=== PATIENT | male | born 1980 | race Caucasian/White ===

== ENCOUNTER 2022-03-15 06:00 | Outpatient (RCR) | payer MEDICAID, SELFPAY | END 2022-04-14 23:59 | disposition home or self-care (01) | LOC: GPT 06:00 | PROVIDERS: Visit Provider Nurse Practitioner Occupational Health | DX: M47.894 Other spondylosis, thoracic region (principal) | CPT/HCPCS: 97110; 97140; 97163 ==

== ENCOUNTER 2022-04-15 06:00 | Outpatient (RCR) | payer MEDICAID, SELFPAY | END 2022-05-14 23:59 | disposition home or self-care (01) | LOC: GPT 06:00 | PROVIDERS: Visit Provider Nurse Practitioner Occupational Health | DX: M47.894 Other spondylosis, thoracic region (principal) | CPT/HCPCS: 97110; 97535 ==

== ENCOUNTER 2022-06-17 08:04 | Outpatient (CLI) | payer MEDICAID, SELFPAY ==
--- NOTE | 2022-06-17 08:11 | MR_ITS ---
WS: [email or web address] MRI LEFT KNEE NONCONTRAST TECHNIQUE: Axial PD, coronal PD fat sat, coronal PD, sagittal PD, and sagittal PD fat-sat images obta ined. CLINICAL INFORMATION: PAIN IN LEFT KNEE COMPARISON: None. FINDINGS: Distal quadriceps and patella tendons are intact. ACL and PCL are intact. Tiny intrasubstance tear in volving the distal ACL insertion likely chronic. ACL is otherwise normal in appearance. Normal medial and lateral meniscus. No acute appearing meniscal tears. Mild chondromalacia patella. Normal medial and lateral patellar retinaculum. Normal popliteal fossa. Normal medial and lateral collateral ligaments. Normal femoral condyles and tibial plateau. No other suspicious findings. MR/MR knee LT wo con* [id number] IMPRESSION: 1. ACL and PCL are intact. Slight thinning of the distal ACL insertion with a small intrasubstance tear likely chronic. ACL is otherwise normal. 2. No acute appearing meniscal tears. 3. Mild chondromalacia patella. No subchondral edema. 4. Normal medial and lateral collateral ligaments. 5. No other suspicious findings. Outbridge grading: grade I: focal areas of hyperintensity with normal contour
== END 2022-06-17 08:05 | disposition home or self-care (01) ==
LOC: RAD 08:05
PROVIDERS: Visit Provider Nurse Practitioner Occupational Health
DX: M22.42 Chondromalacia patellae, left knee (principal); M25.562 Pain in left knee
CPT/HCPCS: 73721

== ENCOUNTER → 2022-06-24 10:21 | Outpatient (BNVA) | payer MEDICAID, SELFPAY | PROVIDERS: Visit Provider Physician Assistant | DX: M41.54 Other secondary scoliosis, thoracic region (principal) | CPT/HCPCS: 72072; 72110 ==

== ENCOUNTER → 2022-07-02 09:56 | Outpatient (BNVA) | payer MEDICAID, SELFPAY | PROVIDERS: Referring Provider Dermatology; Visit Provider Specialist | DX: M89.9 Disorder of bone, unspecified (principal); M25.561 Pain in right knee | CPT/HCPCS: 73560; 73565 ==

== ENCOUNTER 2022-08-04 09:15 | Outpatient (CLI) | payer MEDICAID, SELFPAY ==
--- NOTE | 2022-08-04 10:15 | MR_ITS ---
WS: [email or web address] MRI LUMBAR SPINE NONCONTRAST HISTORY: Chronic back pain down both legs. COMPARISON: None available. TECHNIQUE: Sagittal and axial multisequence imaging is submitted. Normal lumbar alignment with no compression fractures or marrow edema. Mild disc desiccation at L5-S1. No fractures or marrow edema. Conus terminates normally at L1-2 disc level. L1-L2: Normal. L2-L3: Normal. L3-L4: Normal. L4-L5: Mild ligamentum flavum hypertrophy and facet arthritis. Very small amount of fluid in the face t joints. No stenosis. L5-S1: Mild annular disc bulging. Minimal facet joint arthritis. Small amount of fluid in the facet j oints. Paravertebral soft tissues are normal. MR/MR lumbar spine wo con* [id number] IMPRESSION: 1. No acute central or foraminal stenosis. 2. Mild facet joint arthritis at L4-5 and L5-S1.
== END 2022-08-04 09:16 | disposition home or self-care (01) ==
LOC: RAD 09:16
PROVIDERS: Visit Provider Physician Assistant
DX: G89.29 Other chronic pain (principal); M47.816 Spondylosis without myelopathy or radiculopathy, lumbar region; M47.817 Spondylosis without myelopathy or radiculopathy, lumbosacral region
CPT/HCPCS: 72148

== ENCOUNTER 2022-08-04 09:15 | Outpatient (CLI) | payer MEDICAID, SELFPAY ==
--- NOTE | 2022-08-04 09:30 | MR_ITS ---
WS: [email or web address] MRI LEFT LOWER EXTREMITY with and without CONTRAST. COMPARISON: Prior radiographs 07/02/2022 Multiplanar, multisequence imaging is performed with and without contrast. MultiHance 18 mL IV. Poorly defined osseous lesion within the proximal tibial diaphysis. On the T1 sequence there is very mild cortical thickening. On the T2 sequences and proton density sequences there is very mild but not diffuse increased signal. There is thickening of the cortex and a small amount of irregularity along the cortical medullary junction. This lesion is very difficult to visualize by MRI. The lesion exten ds over a length of 2.0 cm and transversely by 14 mm. Seen best on the axial proton density sequences is cortical thickening with a small nidus extending into the cortex. There is mild enhancement within the bone lesion. Enhancement is centered near the cortical medullary junction of the proximal diaphysis. There is not a lot of edema and no fracture. No additional bone lesions are identified. MR/MR lower leg LT wo/w con [id number] IMPRESSION: 1. 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 Very minimal enhancement within this lesion with mild cortical thi ckening. Bone lesion measures 2.0 cm in length x 1.4 cm transversely. There is not a lot of reactive soft tissue edema. Does not appear to be extremely aggres sive although there are osseous changes at the cortical medullary junction. Con privacy analyst benign lesion such as osteoid osteoma and osteomyelitis. Low-grade neopla sm is not completely excluded. There is mild enhancement. 2. No additional bone lesions.
== END 2022-08-04 09:16 | disposition home or self-care (01) ==
LOC: RAD 09:16
PROVIDERS: Visit Provider Specialist
DX: M25.562 Pain in left knee (principal); M89.9 Disorder of bone, unspecified
CPT/HCPCS: 73720; A9577

== ENCOUNTER → 2022-11-12 11:33 | Outpatient (BNVA) | payer MEDICAID, SELFPAY | PROVIDERS: Visit Provider Specialist | DX: M25.511 Pain in right shoulder (principal) | CPT/HCPCS: 73030 ==

== ENCOUNTER 2022-11-27 15:21 | Outpatient (CLI) | payer MEDICAID, SELFPAY ==
--- NOTE | 2022-11-27 15:15 | MR_ITS ---
WS: [email or web address] MRI RIGHT SHOULDER NONCONTRAST TECHNIQUE: Sagittal T2, coronal T1, T2 and proton density imaging. Axial gradient PDE imaging. CLINICAL INFORMATION: right shoulder alejandro COMPARISON: None. FINDINGS: Some images degraded by motion artifact. Advanced degenerative arthritis AC joint prominent for patient this age. Downsloping acromion with pr ominent subacromial spurring. Impingement on the distal supraspinatus with narrowing of the subacromi al space.. Undersurface tear involving the distal supraspinatus insertion. Tendinopathy distal supras pinatus and infraspinatus. No tendon retraction. Otherwise normal infraspinatus. Normal teres minor. Normal subscapularis. Biceps tendon appears intac t within the bicipital groove. Glenoid labrum appears grossly intact. Small amount of subacromial sub deltoid fluid. Biceps labral anchor appears intact. Intra-articular biceps tendon appears intact. No other acute findings. MR/MR shoulder RT wo con* [id number] IMPRESSION: 1. Advanced degenerative arthritis AC joint with a small amount of subacromial and subdeltoid fluid. Prominent subacromial spurring with impingement on the d istal supraspinatus. 2. Undersurface insertional tear distal supraspinatus. No tendon retraction. T endinopathy. 3. Tendinopathy distal infraspinatus. Normal teres minor. 4. Normal subscapularis tendon. 5. Normal biceps tendon in the bicipital groove. 6. No other acute findings.
== END 2022-11-27 15:22 | disposition home or self-care (01) ==
LOC: RAD 15:23
PROVIDERS: Visit Provider Specialist
DX: M75.101 Unspecified rotator cuff tear or rupture of right shoulder, not specified as traumatic (principal); M25.811 Other specified joint disorders, right shoulder; M19.011 Primary osteoarthritis, right shoulder; M25.511 Pain in right shoulder
CPT/HCPCS: 73221

== ENCOUNTER → 2022-12-25 10:44 | Outpatient (BNVA) | payer MEDICAID, SELFPAY | PROVIDERS: Visit Provider Internal Medicine Rheumatology | DX: M19.90 Unspecified osteoarthritis, unspecified site (principal); Z79.899 Other long term (current) drug therapy; Z11.59 Encounter for screening for other viral diseases; M45.6 Ankylosing spondylitis lumbar region | CPT/HCPCS: 36415; 73130; 73630; 80076; 82306; 82565; 85025; 85651; 86140; 86200; 86431; 86480; 86704; 86803; 86812; 87340 ==

== ENCOUNTER → 2023-04-13 11:40 | Outpatient (BNVA) | payer MEDICAID, SELFPAY | PROVIDERS: Referring Provider Anesthesiology Pain Medicine; Visit Provider Psychiatry & Neurology Neurology | DX: M54.2 Cervicalgia (principal); G62.9 Polyneuropathy, unspecified; Z79.899 Other long term (current) drug therapy | CPT/HCPCS: 36415; 80076; 82565; 82607; 82746; 83735; 83921; 84439; 84443; 84481; 85025; 86140 ==

== ENCOUNTER 2023-05-13 09:27 | Outpatient (CLI) | payer MEDICAID, SELFPAY ==
[2023-05-13 10:42] LABS: Albumin Level 4.2 g/dL (3.5-5.2); Alkaline Phosphatase 91 U/L (40-130); Globulin 2.7 g/dL (1.3-4.6); Total Bilirubin 0.7 mg/dL (0.15-1.2); Total Protein 6.9 g/dL (6.6-8.7)
[2023-05-13 12:11] LABS: Alanine Aminotransferase 160 U/L (0-41); Aspartate Amino Transferase 59 U/L (0-40)
== END 2023-05-13 09:28 | disposition home or self-care (01) ==
LOC: LAB 09:27
PROVIDERS: Visit Provider Internal Medicine Rheumatology
DX: Z79.899 Other long term (current) drug therapy (principal)
CPT/HCPCS: 36415; 80076

== ENCOUNTER 2023-05-19 09:32 | Outpatient (CLI) | payer MEDICAID, SELFPAY ==
--- NOTE | 2023-05-19 10:15 | MR_ITS ---
WS: [email or web address] MRI CERVICAL SPINE NONCONTRAST TECHNIQUE: Sagittal T1, T2 and STIR imaging. Axial T2, gradient, and fiesta imaging. CLINICAL INFORMATION: M54.2 - Cervicalgia COMPARISON: None. FINDINGS: Straightening of the normal cervical lordosis. Cord signal is normal. No high-grade central canal vijay rowing. C2-C3: Normal. C3-C4: Mild facet arthropathy. Spinal canal and foramen are patent. C4-C5: Mild disc osteophytic ridging. Mild facet arthropathy. Spinal canal is patent. Mild RIGHT fora piyush narrowing. C5-C6: Mild disc osteophytic ridging. Mild facet arthropathy. Mild RIGHT and no significant LEFT fora piyush narrowing. Tiny central protrusion. C6-C7: Minimal disc bulging with slight effacement of the ventral thecal sac. Mild to moderate LEFT a nd mild RIGHT foraminal narrowing. C7-T1: Mild LEFT and no significant RIGHT foraminal narrowing. Spine canal is patent. Visualized brain stem structures: Normal. Prevertebral soft tissues: Normal. IMPRESSION: 1. Straightening of the normal cervical doses. Cord signal is normal. 2. Disc osteophytic ridging with a small LEFT foraminal protrusion C6-7 with mild to moderate LEFT f oraminal narrowing. 3. Mild RIGHT C4-C5 and RIGHT C5-C6 foraminal narrowing with moderate facet arthropathy. 4. Tiny central protrusion C5-C6 with slight contact of the cervical cord. Spinal canal remains ozuna nt.
== END 2023-05-19 09:33 | disposition home or self-care (01) ==
PROVIDERS: Visit Provider Psychiatry & Neurology Neurology
DX: M50.222 Other cervical disc displacement at C5-C6 level (principal); M48.02 Spinal stenosis, cervical region; M25.78 Osteophyte, vertebrae; M47.812 Spondylosis without myelopathy or radiculopathy, cervical region
CPT/HCPCS: 72141

== ENCOUNTER 2023-06-22 09:46 | Outpatient (CLI) | payer MEDICAID, SELFPAY ==
[2023-06-22 12:16] LABS: Alanine Aminotransferase 95 U/L (0-41); Albumin Level 4.5 g/dL (3.5-5.2); Alkaline Phosphatase 88 U/L (40-130); Aspartate Amino Transferase 26 U/L (0-40); Globulin 2.9 g/dL (1.3-4.6); Total Bilirubin 0.8 mg/dL (0.15-1.2); Total Protein 7.4 g/dL (6.6-8.7)
== END 2023-06-22 09:47 | disposition home or self-care (01) ==
LOC: LAB 09:48
PROVIDERS: PCP Internal Medicine Rheumatology; Visit Provider Internal Medicine Rheumatology
DX: R74.8 Abnormal levels of other serum enzymes (principal); Z79.899 Other long term (current) drug therapy; M25.562 Pain in left knee; M17.12 Unilateral primary osteoarthritis, left knee; M89.9 Disorder of bone, unspecified
CPT/HCPCS: 36415; 73560; 73565; 80076

== ENCOUNTER 2023-07-08 11:12 | Outpatient (CLI) | payer MEDICAID, SELFPAY ==
[2023-07-08 12:13] LABS: Basophils # 0.1 10^3/uL (0.0-0.1); Basophils % 0.7 %; Eosinophils # 0.2 10^3/uL (0.0-0.8); Eosinophils % 2.4 %; Hematocrit 46.9 % (37-53); Lymphocytes # 2.3 10^3/uL (0.8-4.8); Lymphocytes % 31.8 %; Mean Corpuscular HGB Conc 34.5 g/dL (30-55); Mean Corpuscular Hemoglobin 30.1 pg (27-33); Mean Corpuscular Volume 87.2 fl (82-101); Mean Platelet Volume 10.5 fL (7.4-10.4); Monocytes # 0.4 10^3/uL (0.2-0.9); Monocytes % 5.4 %; Neutrophils # 4.25 10^3/uL (1.8-7.7); Neutrophils % 59.3 %; Nucleated Red Blood Cells % 0 %; Platelet Count 233 10^3/cmm (157-399); Red Blood Count 5.38 10^6/uL (3.85-5.65); Red Cell Distribution Width 13.2 % (12.1-15.1); White Blood Count 7.17 10^3/uL (3.29-11.43)
[2023-07-08 12:36] LABS: Albumin Level 3.7 g/dL (3.5-5.2); Alkaline Phosphatase 91 U/L (40-130); Globulin 3.4 g/dL (1.3-4.6); Glomerular Filtration Rate 65.5 mL/min (90-130); Total Bilirubin 0.6 mg/dL (0.15-1.2); Total Protein 7.1 g/dL (6.6-8.7)
[2023-07-08 12:44] LABS: Aspartate Amino Transferase 44 U/L (0-40)
[2023-07-08 12:45] LABS: Alanine Aminotransferase 73 U/L (0-41)
== END 2023-07-08 11:13 | disposition home or self-care (01) ==
LOC: LAB 11:13
PROVIDERS: Visit Provider Internal Medicine Rheumatology
DX: M06.041 Rheumatoid arthritis without rheumatoid factor, right hand (principal); M06.042 Rheumatoid arthritis without rheumatoid factor, left hand; Z79.899 Other long term (current) drug therapy; R74.8 Abnormal levels of other serum enzymes
CPT/HCPCS: 80076; 82565; 85025; 86140

== ENCOUNTER → 2023-07-09 09:35 | Outpatient (BNVA) | payer MEDICAID, SELFPAY | PROVIDERS: Visit Provider Orthopaedic Surgery | DX: M47.812 Spondylosis without myelopathy or radiculopathy, cervical region | CPT/HCPCS: 72050 ==

== ENCOUNTER 2023-07-24 09:23 | Outpatient (CLI) | payer MEDICAID, SELFPAY ==
--- NOTE | 2023-07-24 10:30 | USCV_ITS ---
Bulmaro Peoples Age: 43 Gender: M : 1980 Exam Date: 07/24/2023 09:32 Ordering Phys: All Huber MD Technologist: Exam Location: [facility] – [place] Indication: stenosis Risk Factors: Previous Vascular Surgery: Right Brachial BP: / Left Brachial BP: / Right Left Velocity (cm/s) Spectral Plaque Velocity (cm/s) Spectral Plaque Syst/Diast Broadening Syst/Diast Broadening 126.60/37.00 Prox CCA 160.80/ 27.20 112.60/31.40 Mid CCA 124.90/ 27.20 126.60/28.60 Distal CCA 137.70/ 29.80 88.60/ 25.30 Prox ICA 79.13 / 26.60 67.50/ 23.90 Mid ICA 75.00 / 24.60 80.20/ 29.40 Distal ICA 51.00 / 20.10 137.00 ECA 141.20 0.70 ICA/CCA 0.50 Antegrade Vertebral Antegrade 31.20/ 11.20 cm/s 52.20/ 11.10 cm/s Tri Subclavian Tri CONCLUSIONS Right ICA stenosis <50%. Mild atheromatous plaque right carotid bulb/ICA. Left ICA stenosis <50%. Mild atheromatous plaque left carotid bulb/ICA. Intimal thickening in the common carotid arteries and internal carotid arteries bilaterally. Normal antegrade Doppler flow noted in the right vertebral artery. Normal antegrade Doppler flow noted in the left vertebral artery. Bharath Davis MD (Electronically Signed) Final Date: 24 July 2023 17:36 S
--- NOTE | 2023-07-24 11:00 | MR_ITS ---
WS: [email or web address] MRI BRAIN WITH AND WITHOUT CONTRAST HISTORY: M54.2 - Cervicalgia COMPARISON: None available. TECHNIQUE: Multiplanar imaging performed through the brain with MultiHance 20 ml's IV. No acute infarcts are seen. Richardson-white matter differentiation is well preserved. No susceptibility artifacts or prior lacunar infarcts. Ventricles and extra-axial spaces are normal. Clivus and pituitary gland are normal. Visualized posterior fossa and brainstem are also normal. No enhancing masses. There is a very small venous angioma in the posterior LEFT frontal lobe. Dural venous sinuses are normal. Paranasal sinuses: Well aerated with no significant disease. Mastoid air cells: Normal. Calvarium and scalp: Normal. IMPRESSION: 1. No prior infarcts or hemorrhage. 2. No enhancing masses. 3. Very small posterior LEFT frontal venous angioma.
== END 2023-07-24 09:24 | disposition home or self-care (01) ==
LOC: RAD 09:24
PROVIDERS: Visit Provider Psychiatry & Neurology Neurology
DX: M54.2 Cervicalgia (principal); R22.1 Localized swelling, mass and lump, neck; M79.2 Neuralgia and neuritis, unspecified; I65.23 Occlusion and stenosis of bilateral carotid arteries; Q28.3 Other malformations of cerebral vessels
CPT/HCPCS: 70553; 72050; 93880; A9577

== ENCOUNTER 2023-08-03 09:56 | Outpatient (CLI) | payer MEDICAID, SELFPAY ==
--- NOTE | 2023-08-03 11:00 | MR_ITS ---
WS: [email or web address] MRI LEFT LOWER EXTREMITY WITH AND WITHOUT CONTRAST. COMPARISON: 08/04/2022 Multiplanar, multisequence imaging is performed with and without contrast. MultiHance 19 mL. Reidentified is the very minimal cortical thickening involving the proximal tibial metaphysis as seen on the prior examination from 08/04/2022. Cortical thickening extends over a length of 1.8 cm and the re is no significant amount of edema. No fracture. Very similar to the prior study. No additional abn ormality. There is also no enhancement on the postcontrast sequences. IMPRESSION: Mild cortical thickening extending over a length of 1.8 cm along the medial LEFT tibial metaphysis perez s not progressed. There is no marrow edema to suggest this is an acute inflammatory or aggressive pro cess. No fracture. 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
[2023-08-03] MEDS: gadobenate dimeglumine 20 mL vial IV (12:22)
== END 2023-08-03 09:57 | disposition home or self-care (01) ==
LOC: RAD 09:57
PROVIDERS: Visit Provider Specialist
DX: M89.9 Disorder of bone, unspecified (principal)
CPT/HCPCS: 73720; A9577

== ENCOUNTER → 2023-10-07 11:05 | Outpatient (BNVA) | payer MEDICAID, SELFPAY | PROVIDERS: PCP Nurse Practitioner; Visit Provider Internal Medicine Rheumatology | DX: M06.041 Rheumatoid arthritis without rheumatoid factor, right hand (principal); M06.042 Rheumatoid arthritis without rheumatoid factor, left hand; Z79.899 Other long term (current) drug therapy; R79.89 Other specified abnormal findings of blood chemistry; M19.019 Primary osteoarthritis, unspecified shoulder; M25.511 Pain in right shoulder; M51.36 Other intervertebral disc degeneration, lumbar region | CPT/HCPCS: 36415; 80076; 82565; 85025; 86140 ==

== ENCOUNTER 2023-10-15 06:49 | Outpatient (CLI) | payer MEDICAID, SELFPAY ==
--- NOTE | 2023-10-15 07:15 | USR_ITS ---
PROCEDURE INFORMATION: Exam: US Abdomen; Limited Exam date and time: 10/15/2023 6:58 AM Age: 43 years old Clinical indication: Abnormal findings; Abnormal lab test; Elevated liver enzymes; Additional info: R79.89 - other specified abnormal findings of blood chemi. . . TECHNIQUE: Imaging protocol: Real time ultrasound of the abdomen with image documentation. Limited exam focused on the region of clinical interest. COMPARISON: MR lumbar spine wo con* [id number] 08/04/2022 10:29 AM FINDINGS: Liver: Severe fatty infiltration of the liver. Gallbladder: No gallstones or ductal dilatation. Pancreas: Suboptimal evaluation of the pancreas in the normal flow. US/US liver [id number] IMPRESSION: Severe fatty infiltration of the liver. No gallstones or ductal dilatation
== END 2023-10-15 06:50 | disposition home or self-care (01) ==
LOC: RAD 06:49
PROVIDERS: PCP Nurse Practitioner; Visit Provider Internal Medicine Rheumatology
DX: R79.89 Other specified abnormal findings of blood chemistry (principal); K76.0 Fatty (change of) liver, not elsewhere classified
CPT/HCPCS: 76705

== ENCOUNTER → 2024-09-28 08:33 | Outpatient (BNVA) | payer MEDICAID, SELFPAY | PROVIDERS: PCP Nurse Practitioner Family; Visit Provider Specialist | DX: M19.011 Primary osteoarthritis, right shoulder (principal); M19.012 Primary osteoarthritis, left shoulder; M54.2 Cervicalgia | CPT/HCPCS: 73030 ==

== ENCOUNTER 2024-09-30 08:00 | Outpatient (CLI) | payer MEDICAID, SELFPAY ==
--- NOTE | 2024-09-30 08:30 | MR_ITS ---
WS: [email or web address] MRI RIGHT SHOULDER NONCONTRAST TECHNIQUE: Sagittal T2, coronal T1, T2 and proton density imaging. Axial gradient PDE imaging. CLINICAL INFORMATION: right shoulder pain COMPARISON: MRI 11/27/2022 FINDINGS: Moderate to advanced arthritis AC joint with fluid and edema. Subacromial- subdeltoid fluid. Subacromial spurring with impingement on the rotator cuff. Small insertional tear distal supraspinatus. Tendinopathy distal supraspinatus and infraspinatus. Small intrasubstance tears involving the distal supraspinatus and infraspinatus tendons similar to previous. Biceps labral anchor appears intact. Normal biceps tendon in the bicipital groove. Intra-articular biceps tendon appears intact. Tendinopathy intra- articular biceps tendon with T2 signal abnormality. Moderate degenerative narrowing of the glenohumeral articulation. MR/MR shoulder RT wo con* [id number] IMPRESSION: 1. Tendinopathy distal supraspinatus and infraspinatus with small intrasubstan ce tears similar to previous. No tendon retraction. Tiny insertional tear dista l supraspinatus. 2. Tendinopathy intra-articular biceps tendon. 3. Biceps tendon appears intact within the bicipital groove. 4. Moderate to advanced arthritis AC joint with subacromial spurring and impin gement on the rotator cuff. 5. This is advanced for a patient this age
== END 2024-09-30 08:01 | disposition home or self-care (01) ==
PROVIDERS: PCP Nurse Practitioner Family; Visit Provider Specialist
DX: M19.011 Primary osteoarthritis, right shoulder (principal); M67.813 Other specified disorders of tendon, right shoulder; M75.101 Unspecified rotator cuff tear or rupture of right shoulder, not specified as traumatic; M75.41 Impingement syndrome of right shoulder; R93.7 Abnormal findings on diagnostic imaging of other parts of musculoskeletal system
CPT/HCPCS: 73221

== ENCOUNTER → 2024-12-08 10:58 | Outpatient (BNVA) | payer MEDICAID, SELFPAY | PROVIDERS: PCP Nurse Practitioner Family; Visit Provider Internal Medicine Rheumatology | DX: M06.041 Rheumatoid arthritis without rheumatoid factor, right hand (principal); M06.042 Rheumatoid arthritis without rheumatoid factor, left hand; Z79.899 Other long term (current) drug therapy | CPT/HCPCS: 36415; 80076; 82306; 82565; 85025; 85651; 86140; 86480; 86704; 86803; 87340 ==

== ENCOUNTER → 2025-04-17 10:35 | Outpatient (BNVA) | payer MEDICARE, MEDICAID, SELFPAY | PROVIDERS: PCP Nurse Practitioner Family; Visit Provider Internal Medicine Rheumatology | DX: M19.011 Primary osteoarthritis, right shoulder (principal); M51.369 Other intervertebral disc degeneration, lumbar region without mention of lumbar back pain or lower extremity pain; M06.041 Rheumatoid arthritis without rheumatoid factor, right hand; M06.042 Rheumatoid arthritis without rheumatoid factor, left hand; Z79.899 Other long term (current) drug therapy; M77.02 Medial epicondylitis, left elbow; M77.01 Medial epicondylitis, right elbow; M77.12 Lateral epicondylitis, left elbow; M77.11 Lateral epicondylitis, right elbow | CPT/HCPCS: 36415; 80076; 82565; 85025; 85651; 86140; 99214 ==

== ENCOUNTER 2025-05-19 09:08 | Outpatient (CLI) | payer MEDICARE, MEDICAID, SELFPAY ==
--- NOTE | 2025-05-19 09:30 | US_ITS ---
WS: [email or web address] RIGHT UPPER QUADRANT ULTRASOUND HISTORY: K76.0 - Fatty (change of) liver, not elsewhere classified COMPARISON: 10/2023 Liver: 16.5 cm in length. Liver is top normal size. Mild variable echogenicity within the liver. Areas of focal fatty sparing adjacent to the gallbladder fossa. No mass. Portal Vein: Normal hepatopetal flow with monophasic waveform. Gallbladder: Normally distended gallbladder with no stones or wall thickening. CBD: 0.3 cm Pancreas: Not visualized. Right kidney: 10.2 cm in length. Normal size and echogenicity. No hydronephrosis or mass. Aorta and IVC: Unremarkable abdominal aorta and IVC. No ascites. US/US liver [id number] IMPRESSION: 1. Normal gallbladder. 2. Normal size liver with focal fatty sparing.
== END 2025-05-19 09:09 | disposition home or self-care (01) ==
LOC: RAD 09:09
PROVIDERS: PCP Nurse Practitioner Family; Visit Provider Internal Medicine Rheumatology
DX: K76.0 Fatty (change of) liver, not elsewhere classified (principal)
CPT/HCPCS: 76705